=== PATIENT | female | born 1965 | race Caucasian/White ===

== ENCOUNTER 2017-05-12 12:06 | Emergency (ER) | payer OTHER ==
[2017-05-12] MEDS: FAMOTIDINE 20 MG/2 ML VIAL IVP ×2 (12:46)
[2017-05-12] MEDS: diphenhydrAMINE 50 MG/ML VIAL IVP ×2 (12:46)
== END 2017-05-12 17:08 | disposition home or self-care (01) ==
LOC: ER 12:06
DX: T37.0X5A Adverse effect of sulfonamides, initial encounter (principal); J44.9 Chronic obstructive pulmonary disease, unspecified; E11.9 Type 2 diabetes mellitus without complications; I10 Essential (primary) hypertension; I48.91 Unspecified atrial fibrillation; F17.210 Nicotine dependence, cigarettes, uncomplicated; Z88.2 Allergy status to sulfonamides; Z88.0 Allergy status to penicillin; Z88.1 Allergy status to other antibiotic agents; Z88.8 Allergy status to other drugs, medicaments and biological substances
CPT/HCPCS: 96374; 96375; 99284-25; J1200; J2060; S0028